=== PATIENT | male | born 1940 | race African-American/Black ===

== ENCOUNTER 2017-03-23 15:03 | Emergency (ER) | payer MEDICARE, MEDICAID ==
[2017-03-23] MEDS ORDERED: PHENAZOPYRIDINE HCL 200 MG TABLET PO ONE (16:33)
--- NOTE | 2017-03-23 16:46 | ER Document Report ---
ED General - General Chief Complaint: Urinary Problem Stated Complaint: PAINFUL URINATION Time Seen by Provider: 03/23/17 16:24 Mode of Arrival: Ambulatory Information source: Patient Notes: 76-year-old male presents with complaints of burning upon urination and hematuria that started this morning. Patient denies any previous similar episodes. Patient has been able to urinate with no difficulty. TRAVEL OUTSIDE OF THE [place] IN LAST 30 DAYS: No - HPI Onset: This morning Onset/Duration: Sudden Quality of pain: Burning Severity: Mild Pain Level: 1 Associated symptoms: Other Exacerbated by: Denies Relieved by: Denies Similar symptoms previously: No Recently seen / treated by doctor: No - Related Data Allergies/Adverse Reactions: No Known Allergies Allergy (Verified 03/23/17 15:03) Past Medical History - Social History Smoking Status: Former Smoker Cigarette use (# per day): No Chew tobacco use (# tins/day): No Smoking Education Provided: No Frequency of alcohol use: None Drug Abuse: None Family History: Reviewed & Not Pertinent Patient has suicidal ideation: No Patient has homicidal ideation: No - Past Medical History Cardiac Medical History: Reports: Hx Hypertension Pulmonary Medical History: Reports: Hx Asthma Renal/ Medical History: Denies: Hx Peritoneal Dialysis Review of Systems - Review of Systems Notes: REVIEW OF SYSTEMS: CONSTITUTIONAL : Denies fever, chills, or sweats. Denies recent illness. EENT: Denies eye, ear, throat, or mouth pain or symptoms. Denies nasal or sinus congestion or discharge. Denies throat, tongue, or mouth swelling or difficulty swallowing. CARDIOVASCULAR: Denies chest pain. Denies palpitations or racing or irregular heart beat. Denies ankle edema. RESPIRATORY: Denies cough, cold, or chest congestion. Denies shortness of breath, difficulty breathing, or wheezing. GASTROINTESTINAL: Denies abdominal pain or distention. Denies nausea, vomiting , or diarrhea. Denies blood in vomitus, stools, or per rectum. Denies black, tarry stools. Denies constipation. GENITOURINARY: admits to burning with urination, hematuria MUSCULOSKELETAL: Denies back or neck pain or stiffness. Denies joint pain or swelling. SKIN: Denies rash, lesions or sores. HEMATOLOGIC : Denies easy bruising or bleeding. LYMPHATIC: Denies swollen, enlarged glands. NEUROLOGICAL: Denies confusion or altered mental status. Denies passing out or loss of consciousness. Denies dizziness or lightheadedness. Denies headache. Denies weakness or paralysis or loss of use of either side. Denies problems with gait or speech. Denies sensory loss, numbness, or tingling. Denies seizures. PSYCHIATRIC: Denies anxiety or stress. Denies depression, suicidal ideation, or homicidal ideation. ALL OTHER SYSTEMS REVIEWED AND NEGATIVE. Dictation was performed using [employer] voice recognition software PHYSICAL EXAMINATION: GENERAL: Well-appearing, well-nourished and in no acute distress. HEAD: Atraumatic, normocephalic. EYES: Pupils equal round and reactive to light, extraocular movements intact, sclera anicteric, conjunctiva are normal. ENT: Nares patent, oropharynx clear without exudates. Moist mucous membranes. NECK: Normal range of motion, supple without lymphadenopathy LUNGS: Breath sounds clear to auscultation bilaterally and equal. No wheezes rales or rhonchi. HEART: Regular rate and rhythm without murmurs ABDOMEN: Soft, nontender, nondistended abdomen. No guarding, no rebound. No masses appreciated. Musculoskeletal: Normal range of motion, no pitting or edema. No cyanosis. NEUROLOGICAL: Cranial nerves grossly intact. Normal speech, normal gait. Normal sensory, motor exams PSYCH: Normal mood, normal affect. SKIN: Warm, Dry, normal turgor, no rashes or lesions noted. Physical Exam - Vital signs Vitals: Temp Pulse Resp BP Pulse Ox 97.9 F 84 18 168/96 H 96 03/23/17 15:14 03/23/17 15:14 03/23/17 15:14 03/23/17 15:14 03/23/17 15:14 Course - Vital Signs Vital signs: Temp Pulse Resp BP Pulse Ox 97.9 F 84 18 168/96 H 96 03/23/17 15:14 03/23/17 15:14 03/23/17 15:14 03/23/17 15:14 03/23/17 15:14
--- NOTE | 2017-03-23 16:59 | ER Document Report ---
ED Medical Screen (RME) - General Chief Complaint: Urinary Problem Stated Complaint: PAINFUL URINATION Time Seen by Provider: 03/23/17 16:24 Mode of Arrival: Ambulatory Information source: Patient Notes: 76-year-old male presents with complaints of burning upon urination as well as difficulty urinating and blood in his urine that started earlier today I have greeted and performed a rapid initial assessment of this patient. A comprehensive ED assessment and evaluation of the patient, analysis of test results and completion of the medical decision making process will be conducted by additional ED providers. PHYSICAL EXAMINATION: GENERAL: Well-appearing, well-nourished and in no acute distress. HEAD: Atraumatic, normocephalic. EYES: Pupils equal round extraocular movements intact, conjunctiva are normal. ENT: Nares patent NECK: Normal range of motion LUNGS: No respiratory distress Musculoskeletal: Normal range of motion NEUROLOGICAL: Normal speech, normal gait. PSYCH: Normal mood, normal affect. SKIN: Warm, Dry, normal turgor, no rashes or lesions noted. TRAVEL OUTSIDE OF THE [place] IN LAST 30 DAYS: No - Related Data Allergies/Adverse Reactions: No Known Allergies Allergy (Verified 03/23/17 15:03) Past Medical History - Social History Frequency of alcohol use: None Drug Abuse: None - Past Medical History Cardiac Medical History: Reports: Hx Hypertension Pulmonary Medical History: Reports: Hx Asthma Renal/ Medical History: Denies: Hx Peritoneal Dialysis Physical Exam - Vital signs Vitals: Temp Pulse Resp BP Pulse Ox 97.9 F 84 18 168/96 H 96 03/23/17 15:14 03/23/17 15:14 03/23/17 15:14 03/23/17 15:14 03/23/17 15:14 Course - Vital Signs Vital signs: Temp Pulse Resp BP Pulse Ox 97.9 F 84 18 168/96 H 96 03/23/17 15:14 03/23/17 15:14 03/23/17 15:14 03/23/17 15:14 03/23/17 15:14
[2017-03-23 17:27] LABS: ABSOLUTE BASOPHILS # (AUTO) 0.1 10^3/uL (0.0-0.2); ABSOLUTE LYMPHOCYTES (AUTO) 1.4 10^3/uL (0.5-4.7); ABSOLUTE NEUT (AUTO) 9.5 10^3/uL (1.7-8.2); BASOPHILS % (AUTO) 0.4 % (0-2); EOSINOPHILS % (AUTO) 0.3 % (0-6); HEMATOCRIT 39.2 % (37.9-51.0); HEMOGLOBIN 12.9 g/dL (13.5-17.0); LYMPHOCYTES % (AUTO) 11.8 % (13-45); MEAN CORPUSCULAR HEMOGLOBIN 29.9 pg (27.0-33.4); MEAN CORPUSCULAR HGB CONC 32.8 g/dL (32.0-36.0); MEAN CORPUSCULAR VOLUME 91 fl (80-97); MONOCYTES % (AUTO) 8.1 % (3-13); PLATELET COUNT 172 10^3/uL (150-450); RED CELL DISTRIBUTION WIDTH 12.9 % (11.5-14.0); SEGMENTED NEUTROPHILS % (AUTO) 79.4 % (42-78); TOTAL CELLS COUNTED % (AUTO) 100 %
[2017-03-23 17:36] LABS: ALANINE AMINOTRANSFERASE 20 U/L (21-72); ALBUMIN 4.5 g/dL (3.5-5.0); ALKALINE PHOSPHATASE 136 U/L (38-126); ANION GAP 14 (5-19); ASPARTATE AMINO TRANSFERASE 18 U/L (17-59); BILIRUBIN,DIRECT 0.2 mg/dL (0.0-0.4); BILIRUBIN,TOTAL 0.4 mg/dL (0.2-1.3); BLOOD UREA NITROGEN 18 mg/dL (7-20); CALCIUM 9.5 mg/dL (8.4-10.2); CARBON DIOXIDE 26 mmol/L (22-30); CHLORIDE 102 mmol/L (98-107); GLUCOSE 172 mg/dL (75-110); POTASSIUM 3.8 mmol/L (3.6-5.0); SODIUM 141.7 mmol/L (137-145); TOTAL PROTEIN 7.7 g/dL (6.3-8.2)
--- NOTE | 2017-03-23 17:39 | RADIOLOGY REPORT (SQ) ---
EXAM DESCRIPTION: CT ABD/PELVIS NO ORAL OR IV COMPLETED DATE/TIME: 03/23/2017 5:13 pm REASON FOR STUDY: hematuria, dysuria COMPARISON: CT abdomen pelvis 01/13/2015 TECHNIQUE: CT scan of the abdomen and pelvis performed without intravenous or oral contrast. Images reviewed with lung, soft tissue, and bone windows. Reconstructed coronal and sagittal MPR images revi ewed. All images stored on PACS. All CT scanners at this facility use dose modulation, iterative reconstruction, and/or weight based d osing when appropriate to reduce radiation dose to as low as reasonably achievable (ALARA). [facility]: Dose Right [facility]: CareDose [facility]: Dose Right [facility]: Teradose 4D [facility]: Smart Razz RADIATION DOSE: CT Rad equipment meets quality standard of care and radiation dose reduction techniq ues were employed. CTDIvol: 12.1 mGy. DLP: 706 mGy-cm.mGy. LIMITATIONS: None. FINDINGS: The bladder is distended. There is hyperdense clot in the dependent portion of the bladde r extending into the male urethra. There is mild bilateral hydronephrosis without ureteral stones id entified. No intrarenal stones. No solid masses. 2.9 cm right midpole renal cortical cyst, 2.5 cm left midpol e renal cortical cyst. LOWER CHEST: Small hiatal hernia. Mild gynecomastia. Both lung bases are free of focal infiltrates. NON-CONTRASTED LIVER, SPLEEN, ADRENALS: Evaluation limited by lack of IV contrast. No identified sign ificant masses. PANCREAS: No masses. No peripancreatic inflammatory changes. GALLBLADDER: No identified stones by CT criteria. No inflammatory changes to suggest cholecystitis. RIGHT KIDNEY AND URETER: As above LEFT KIDNEY AND URETER: As above AORTA AND RETROPERITONEUM: No aneurysm. No retroperitoneal masses or adenopathy. BOWEL AND PERITONEAL CAVITY: No obvious masses or inflammatory changes. No free fluid. APPENDIX: Normal. PELVIS, BLADDER, AND ABDOMINAL WALL:Hyperdense hemorrhage in the dependent portion of the bladder ext ending into the urethra. Mild bilateral hydronephrosis and hydroureter. No free pelvic fluid. No v entral hernia. BONES: No significant findings. OTHER: No other significant finding. IMPRESSION: Hyperdense blood clot in the dependent portion of the urinary bladder extending into the male urethra. Mild urinary outflow obstruction with mild bilateral hydronephrosis and hydroureter COMMENT: Quality ID # [id number]: Final reports with documentation of one or more dose reduction techniques (e.g., Automated exposure control, adjustment of the mA and/or kV according to patient size, use of iterative reconstruction technique) TECHNICAL DOCUMENTATION: JOB ID: [id number] [employer]- All Rights Reserved
[2017-03-23 18:59] LABS: INTERNATIONAL RATION (INR) 0.96; PROTHROMBIN TIME 13.5 SEC (11.4-15.4)
[2017-03-23 19:00] LABS: APPEARANCE,URINE TURBID; BILIRUBIN,URINE NEGATIVE (NEGATIVE); GLUCOSE, URINE NEGATIVE (NEGATIVE); KETONES,URINE NEGATIVE (NEGATIVE); LEUKOCYTE ESTERASE,URINE NEGATIVE (NEGATIVE); NITRITE,URINE NEGATIVE (NEGATIVE); PROTEIN,URINE 100 mg/dL (NEGATIVE); URINE SPECIFIC GRAVITY 1.009; UROBILINOGEN,URINE NEGATIVE mg/dL (<2.0)
[2017-03-23 19:01] LABS: COLOR,URINE RED
[2017-03-23] MEDS ORDERED: CEFTRIAXONE INJ 1000 MG VIAL IM ONE (19:08)
[2017-03-23] MEDS ORDERED: LIDOCAINE 1% INJ-PF (10 MG/ML) 30 ML SDV INFIL ONE (19:08)
--- NOTE | 2017-03-23 19:13 | ER Document Report ---
ED General - General Chief Complaint: Urinary Problem Stated Complaint: PAINFUL URINATION Time Seen by Provider: 03/23/17 16:24 Mode of Arrival: Ambulatory Notes: Patient is a 76-year-old male with a past medical history of BPH, hypertension, who presents with 24 hours of gross hematuria and suprapubic abdominal pain. Patient states that his symptoms started gradually and progressively worsened since that time. Nothing improves or worsens his pain which he does describes a dull, constant, aching pain in the suprapubic region sometimes radiating to the bilateral flanks. He denies any history of similar symptoms in the past. He denies any fever, vomiting, diarrhea or constitutional symptoms. He is scheduled for follow-up with his urologist within the next 4 days but states that today his symptoms became so severe he came to the emergency department. He has no prior history of bladder malignancy or urinary tract infections. TRAVEL OUTSIDE OF THE [place] IN LAST 30 DAYS: No - Related Data Allergies/Adverse Reactions: No Known Allergies Allergy (Verified 03/23/17 15:03) Past Medical History - General Information source: Patient - Social History Smoking Status: Former Smoker Frequency of alcohol use: None Drug Abuse: None Lives with: Family Family History: Reviewed & Not Pertinent Patient has suicidal ideation: No Patient has homicidal ideation: No - Past Medical History Cardiac Medical History: Reports: Hx Hypertension Pulmonary Medical History: Reports: Hx Asthma Renal/ Medical History: Denies: Hx Peritoneal Dialysis Review of Systems - Review of Systems Notes: Constitutional: Negative for fever. HENT: Negative for sore throat. Eyes: Negative for visual changes. Cardiovascular: Negative for chest pain. Respiratory: Negative for shortness of breath. Gastrointestinal: Positive for abdominal pain. Genitourinary: Positive for dysuria and hematuria. Musculoskeletal: Negative for back pain. Skin: Negative for rash. Neurological: Negative for headaches, weakness or numbness. 10 point ROS negative except as marked above and in HPI. Physical Exam - Vital signs Vitals: Temp Pulse Resp BP Pulse Ox 97.9 F 84 18 168/96 H 96 03/23/17 15:14 03/23/17 15:14 03/23/17 15:14 03/23/17 15:14 03/23/17 15:14 Notes: PHYSICAL EXAMINATION: GENERAL: Well-appearing, well-nourished and in no acute distress. HEAD: Atraumatic, normocephalic. EYES: Pupils equal round and reactive to light, extraocular movements intact, sclera anicteric, conjunctiva are normal. ENT: nares patent, oropharynx clear without exudates. Moist mucous membranes. NECK: Normal range of motion, supple without lymphadenopathy LUNGS: Breath sounds clear to auscultation bilaterally and equal. No wheezes rales or rhonchi. HEART: Regular rate and rhythm without murmurs ABDOMEN: Soft, mild suprapubic abdominal tenderness no otherwise localized areas of tenderness, normoactive bowel sounds. No guarding, no rebound. No masses appreciated. EXTREMITIES: Normal range of motion, no pitting or edema. No cyanosis. NEUROLOGICAL: No focal neurological deficits. Moves all extremities spontaneously and on command. PSYCH: Normal mood, normal affect. SKIN: Warm, Dry, normal turgor, no rashes or lesions noted. Course - Re-evaluation Re-evalutation: 03/23/17 19:09 Patient presents with post obstructive uropathy consistent with a post renal azotemia seen on labs as well as a hemorrhagic cystitis as the likely etiology of the obstruction. CT scan does show a large clot in the bladder prior to placement of the Lombardo catheter that was causing mild bilateral hydronephrosis. A Lombardo catheter was placed and patient is passing gross hematuria but no evidence of a faculty of the urine passing through the Lombardo. Patient is otherwise well in appearance, no acute distress, no focal abdominal tenderness. He states that his suprapubic and bilateral flank pain has resolved after placement of Lombardo catheter. Laboratories not demonstrated clinically significant anemia. Vitals otherwise within normal limits. Urinalysis does show evidence of a hemorrhagic cystitis greater than 182 white blood cells in the urine. I am ceftriaxone 1 g will be administered prior to discharge and a culture has been sent. The patient has also been informed that there is a possibility this could be a presentation of bladder cancer. He already has a scheduled follow-up with his urologist on Sunday of next week. He will be discharged with a Lombardo catheter in place with a leg bag. At this time will discharge with return precautions and follow-up recommendations. Verbal discharge instructions given a the bedside and opportunity for questions given. Medication warnings reviewed. Patient is in agreement with this plan and has verbalized understanding of return precautions and the need for primary care follow-up in the next 24-72 hours. - Vital Signs Vital signs: Temp Pulse Resp BP Pulse Ox 97.9 F 90 18 163/75 H 95 03/23/17 19:30 03/23/17 19:30 03/23/17 19:30 03/23/17 19:30 03/23/17 19:30 - Laboratory Result Diagrams: 03/23/17 17:00 03/23/17 17:00 Laboratory results interpreted by me: 03/23/17 03/23/17 03/23/17 17:00 17:00 18:13 WBC 12.0 H RBC 4.30 L Hgb 12.9 L Seg Neutrophils % 79.4 H Lymphocytes % 11.8 L Absolute Neutrophils 9.5 H Creatinine 1.52 H Est GFR ( Amer) 54 L Est GFR (Non-Af Amer) 45 L Glucose 172 H ALT 20 L Alkaline Phosphatase 136 H Urine Protein 100 H Urine Blood MODERATE H - Diagnostic Test Radiology reviewed: Image reviewed, Reports reviewed Radiology results interpreted by me: 03/23/17 19:10 CT abdomen pelvis: Mild bilateral hydronephrosis Discharge - Discharge Clinical Impression: Obstructive uropathy, Hemorrhagic cystitis, Gross hematuria Acute renal failure Qualifiers: Acute renal failure type: unspecified Qualified Code(s): N17.9 - Acute kidney failure, unspecified Condition: Stable Disposition: HOME, SELF-CARE Additional Instructions: Your urine shows an infection but also a large quantity of blood. You are being started on antibiotics and received a dose here in the emergency department before going home. Your CT scan shows that your kidneys were somewhat distended due to the amount of urine your retaining in your bladder. Please take all antibiotics until completed. Follow-up with your urologist as scheduled. You are going home with a Lombardo catheter in place to ensure that your bladder remains decompressed. Return if you have worsening pain, fever, vomiting, stop passing urine out of the Lombardo catheter, or have any other symptoms that are worrisome to you. Prescriptions: Cephalexin Monohydrate [Keflex 500 mg Capsule] 500 mg PO Q6H 7 Days capsule
[2017-03-23 19:34] VITALS: BP 163/75
== END 2017-03-23 19:52 | disposition home or self-care (01) ==
LOC: ER 15:03
DX: N13.9 Obstructive and reflux uropathy, unspecified (principal); N30.91 Cystitis, unspecified with hematuria; I10 Essential (primary) hypertension; Z87.891 Personal history of nicotine dependence
CPT/HCPCS: 99284; 96372; 36415; 87086; 85025; 85610; 87088; 80053; 81001; 87186; 74176; J3490; A9270; J0696

== ENCOUNTER → 2017-04-24 | Outpatient (CLI) | payer MEDICARE, MEDICAID ==
--- NOTE | 2017-04-24 16:36 | RADIOLOGY REPORT (SQ) ---
EXAM DESCRIPTION: CT ABD/PELVIS WITH IV ONLY COMPLETED DATE/TIME: 04/24/2017 2:26 pm REASON FOR STUDY: GROSS HEMATURIA R31.0 GROSS HEMATURIA COMPARISON: 03/23/2017 and 01/13/2015. TECHNIQUE: CT scan of the abdomen and pelvis performed using helical scanning technique with dynamic intravenous contrast injection. No oral contrast. Images reviewed with lung, soft tissue, and bone windows. Reconstructed coronal and sagittal MPR images reviewed. Delayed images for evaluation of the urinary system also acquired. All images stored on PACS. All CT scanners at this facility use dose modulation, iterative reconstruction, and/or weight based d osing when appropriate to reduce radiation dose to as low as reasonably achievable (ALARA). [facility]: Dose Right [facility]: CareDose [facility]: Dose Right [facility]: Teradose 4D [facility]: [employer] CONTRAST TYPE AND DOSE: contrast/concentration: Isovue 370.00 mg/ml; Total Contrast Delivered: 98.0 ml; Total Saline Delivered: 72.0 ml RENAL FUNCTION: Creatinine 1.0. RADIATION DOSE: CT Rad equipment meets quality standard of care and radiation dose reduction techniq ues were employed. CTDIvol: 7.9 - 9.1 mGy. DLP: 935 mGy-cm.. LIMITATIONS: None. FINDINGS: LOWER CHEST: No significant findings. No nodules or infiltrates. LIVER: Normal size. No masses. No dilated ducts. SPLEEN: Normal size. No focal lesions. PANCREAS: No masses. No significant calcifications. No adjacent inflammation or peripancreatic fluid collections. Pancreatic duct not dilated. GALLBLADDER: No identified stones by CT criteria. No inflammatory changes to suggest cholecystitis. ADRENAL GLANDS: No significant masses or asymmetry. RIGHT KIDNEY AND URETER: Stable cortical cysts. No solid masses. No significant calcifications. No hydronephrosis or hydroureter. LEFT KIDNEY AND URETER: Stable cortical cysts. No solid masses. No significant calcifications. N o hydronephrosis or hydroureter. AORTA AND VESSELS: No aneurysm. No dissection. Renal arteries, SMA, celiac without stenosis. RETROPERITONEUM: No retroperitoneal adenopathy, hemorrhage or masses. BOWEL AND PERITONEAL CAVITY: No masses or inflammatory changes. Duodenal diverticulum. No free flui d or peritoneal masses. APPENDIX: Normal. PELVIS: No mass. No free fluid. Normal bladder. ABDOMINAL WALL: No masses. No hernias. BONES: No significant or acute findings. OTHER: Scattered densities in the subcutaneous fatty tissues of the anterior abdomen, unchanged, poss ibly due to areas of scarring. No other significant finding. IMPRESSION: STABLE CORTICAL CYSTS IN BOTH KIDNEYS. INCIDENTAL DUODENAL DIVERTICULUM. NO OTHER SIGN IFICANT OR ACUTE FINDING IN THE ABDOMEN OR PELVIS ON CT SCAN WITH IV CONTRAST. TECHNICAL DOCUMENTATION: JOB ID: [id number] Quality ID # [id number]: Final reports with documentation of one or more dose reduction techniques (e.g., Au tomated exposure control, adjustment of the mA and/or kV according to patient size, use of iterative reconstruction technique) 2010 [employer]- All Rights Reserved Reading location - IP/workstation name: [email or web address]-[email or web address]
== END ==
LOC: RAD 13:28
PROVIDERS: ATTEND Urology
DX: R31.0 Gross hematuria (principal)
CPT/HCPCS: 74177; 82565

== ENCOUNTER 2018-01-29 08:54 | Emergency (ER) | payer MEDICARE, MEDICAID ==
[2018-01-29] MEDS ORDERED: ONDANSETRON 4 MG TAB.RAPDIS PO ONE (09:22)
--- NOTE | 2018-01-29 09:23 | ER Document Report ---
ED Medical Screen (RME) - General Chief Complaint: Nausea Stated Complaint: ABDOMINAL PAIN, BACK PAIN Time Seen by Provider: 01/29/18 09:20 Mode of Arrival: Wheelchair Information source: Patient, [facility] Records Notes: 77-year-old male with hypertension, hyperlipidemia, asthma presents with complaint of left low back pain that started 3 days prior to arrival. Patient has had associated nausea and vomiting secondary to pain. He denies any injury. I have greeted and performed a rapid initial assessment of this patient. A comprehensive ED assessment and evaluation of the patient, analysis of test results and completion of medical decision making process we will be contacted by additional ED providers. PHYSICAL EXAMINATION: Vital signs reviewed-tachycardic GENERAL: Well-appearing, well-nourished and in no acute distress. LUNGS: No respiratory distress Musculoskeletal: Normal range of motion NEUROLOGICAL: Normal speech, normal gait. PSYCH: Normal mood, normal affect. SKIN: Warm, Dry, normal turgor, no rashes or lesions noted. TRAVEL OUTSIDE OF THE [place] IN LAST 30 DAYS: No - HPI Onset: Other Onset/Duration: Gradual, Persistent Quality of pain: Throbbing Associated Symptoms: Nausea, Vomiting Exacerbated by: Movement Relieved by: Denies Similar symptoms previously: No Recently seen / treated by doctor: No - Related Data Smoking: Non-smoker Frequency of alcohol use: None Drug Abuse: None Allergies/Adverse Reactions: No Known Allergies Allergy (Verified 01/29/18 09:17) Past Medical History - Social History Chew tobacco use (# tins/day): No Frequency of alcohol use: None Drug Abuse: None - Past Medical History Cardiac Medical History: Reports: Hx Hypertension Pulmonary Medical History: Reports: Hx Asthma Renal/ Medical History: Denies: Hx Peritoneal Dialysis Past Surgical History: Reports: Hx Orthopedic Surgery Physical Exam - Vital signs Vitals: Temp Pulse Resp BP Pulse Ox 97.5 F 106 H 16 105/54 L 97 01/29/18 09:01 01/29/18 09:01 01/29/18 09:01 01/29/18 09:01 01/29/18 09:01 Course - Vital Signs Vital signs: Temp Pulse Resp BP Pulse Ox 97.5 F 106 H 16 105/54 L 97 01/29/18 09:01 01/29/18 09:01 01/29/18 09:01 01/29/18 09:01 01/29/18 09:01 Doctor's Discharge - Discharge Referrals: MIGUELANGEL JUAREZ MD [Primary Care Provider] - Follow up as needed
--- NOTE | 2018-01-29 10:12 | ER Document Report ---
ED General - General Chief Complaint: Nausea Stated Complaint: ABDOMINAL PAIN, BACK PAIN Time Seen by Provider: 01/29/18 09:20 Mode of Arrival: Wheelchair Notes: Patient is a 77-year-old male with hypertension that presents to the emergency department for chief complaint of abdominal pain. Patient states the pain started over this past weekend, he had associated nausea and vomiting, and has been persistent and seemingly worsening over time. The pain is located left side of the abdomen, radiates toward the lower back, and they currently rate the pain as a 4 out of 10, and described as aching, and constant. They have had associated nausea, vomiting, associated with this pain, denies having any chest pain, shortness of breath, fevers, chills, night sweats. Denies having pain like this in the past, he thought maybe the pain came from eating and sandwich, but he denies having any associated diarrhea, currently rates the pain as a 5 out of 10, describes as aching sensation. Past Medical History: Hypertension Past Surgical History: Rotator cuff, thumb surgery, knee surgery Social History: Former smoker, denies alcohol or illicit drug use. Family History: Reviewed and noncontributory for presenting illness Allergies: Reviewed, see documented allergy list. REVIEW OF SYSTEMS: Other than noted above, the 12 point review of systems was reviewed with the patient and were negative, all pertinent findings are included in the HPI. PHYSICAL EXAMINATION: Vital signs reviewed, nursing noted reviewed. GENERAL: Somewhat ill-appearing elderly male, but in no acute distress HEAD: Atraumatic, normocephalic. EYES: Eyes appear normal, extraocular movements intact, sclera anicteric, conjunctiva are normal. ENT: nares patent, oropharynx clear without exudates. Moist mucous membranes. NECK: Normal range of motion, supple without lymphadenopathy LUNGS: Breath sounds clear to auscultation bilaterally and equal. No wheezes rales or rhonchi. HEART: Heart rate tachycardic, regular rhythm ABDOMEN: Soft, distended, no pulsatile mass, normal bowel sounds, tenderness with palpation on the left side of the abdomen, No rebound, guarding, or rigidity. No masses appreciated. Liver is palpated and appears enlarged. EXTREMITIES: Nontender, good range of motion, no pitting or edema. NEUROLOGICAL: No focal neurological deficits. Moves all extremities spontaneously Motor and sensory grossly intact on exam. PSYCH: Normal mood, normal affect. SKIN: Warm, Dry, normal turgor, no rashes or lesions noted on exposed skin TRAVEL OUTSIDE OF THE [place] IN LAST 30 DAYS: No - Related Data Allergies/Adverse Reactions: No Known Allergies Allergy (Verified 01/29/18 09:17) Past Medical History - General Information source: Patient, [facility] Records - Social History Smoking Status: Former Smoker Chew tobacco use (# tins/day): No Frequency of alcohol use: None Drug Abuse: None Family History: Reviewed & Not Pertinent Patient has suicidal ideation: No Patient has homicidal ideation: No - Past Medical History Cardiac Medical History: Reports: Hx Hypertension Pulmonary Medical History: Reports: Hx Asthma Renal/ Medical History: Denies: Hx Peritoneal Dialysis Past Surgical History: Reports: Hx Orthopedic Surgery Physical Exam - Vital signs Vitals: Temp Pulse Resp BP Pulse Ox 97.5 F 106 H 16 105/54 L 97 01/29/18 09:01 01/29/18 09:01 01/29/18 09:01 01/29/18 09:01 01/29/18 09:01 Course - Re-evaluation Re-evalutation: Patient seen and examined vital signs reviewed. Laboratory data and imaging were ordered as appropriate for the patient's presenting symptoms and complaint, with consideration of any critical or life threatening conditions that may be associated with their obtained history and exam as noted above. Patient was treated with IV fluids, Zofran Results were reviewed when available and demonstrated evidence of acute hepatic failure, hyperbilirubinemia, transaminitis, and on CT imaging, redemonstration of hyperattenuating lesions, concerning for possible carcinoma, though not seen on prior CT imaging. Lipase is normal. Patient also noted to have an acute kidney injury from prior labs, patient was given IV fluids. He was also noted to be anemic compared to prior labs from March of this year, from , to , overall his blood counts are lower, lower platelet count and prior as well, suspect secondary to liver failure. The patient was re-evaluated and was stable, pain was improved, no further nausea or vomiting, discussed results with the patient. Evaluation was most consistent with acute liver failure, with acute kidney injury Initially I did call the hospitalist to admit the patient to this institution, however they recommended calling the vocational rehabilitation teacher I was instructional technology director prior to excepting admission to see if they would be able to help manage the patient, was placed to Dr. Devlin who stated the patient may need ERCP, which she has not trained in, and recommended transfer to an institution that had ERCP available. Results were discussed with the patient at this point after careful consideration I feel that that patient should be transferred to [facility] due to need for ERCP, and further management for his acute hepatic failure and acute kidney injury, and further workup needed. This was discussed with the patient that it is in the best interest for their care to be transferred, the risks and benefits of transfer were discussed, including but not limited to clinical deterioration during transport, respiratory distress , and potential for traumatic injuries. Patient agreed with this plan of care. Patient accepted by Dr. Pritchett at [facility]. *Note is created using voice recognition software and may contain spelling, syntax or grammatical errors. Laboratory 01/29/18 01/29/18 01/29/18 11:15 11:15 11:15 WBC 10.8 H RBC 2.73 L Hgb 9.1 L Hct 27.1 L MCV 99 H MCH 33.4 MCHC 33.7 RDW 14.0 Plt Count 160 Total Counted 100 Seg Neutrophils % Not Reportable Seg Neuts % (Manual) 74 Band Neutrophils % 1 L Lymphocytes % Not Reportable Lymphocytes % (Manual) 12 L Monocytes % Not Reportable Monocytes % (Manual) 13 Eosinophils % Not Reportable Eosinophils % (Manual) 0 Basophils % Not Reportable Basophils % (Manual) 0 Absolute Neutrophils Not Reportable Abs Neuts (Manual) 8.1 Absolute Lymphocytes Not Reportable Abs Lymphs (Manual) 1.3 Absolute Monocytes Not Reportable Abs Monocytes (Manual) 1.4 Absolute Eosinophils Not Reportable Absolute Eos (Manual) 0.0 Absolute Basophils Not Reportable Abs Basophils (Manual) 0.0 Nucleated RBCs 1 Platelet Comment ADEQUATE Polychromasia 1+ Poikilocytosis SLIGHT Macrocytosis SLIGHT Tear Drop Cells SLIGHT Ovalocytes SLIGHT Sodium 143.1 Potassium 4.5 Chloride 104 Carbon Dioxide 24 Anion Gap 15 BUN 55 H Creatinine 2.35 H Est GFR ( Amer) 33 L Est GFR (Non-Af Amer) 27 L Glucose 121 H Calcium 9.4 Total Bilirubin 5.5 H Direct Bilirubin 4.3 H Neonat Total Bilirubin Not Reportable Neonat Direct Bilirubin Not Reportable Neonat Indirect Bili Not Reportable AST 329 H ALT 143 H Alkaline Phosphatase 198 H Creatine Kinase 136 CK-MB (CK-2) 1.79 Troponin I < 0.012 Total Protein 7.8 Albumin 3.8 Lipase 19.4 L Abdomen/Pelvis CT 01/29/18 12:01 IMPRESSION: 1. Since the previous examination dated 03/23/2017, heterogenous appearance to the liver with multiple hypoattenuated areas suggested. Hepatomegaly and small right perihepatic free fluid, new findings. Correlation suggested, lab values, and CT Liver with and without IV contrast or MRI Liver with and without contrast. 2. Interval resolution of the bilateral hydro ureteral nephrosis. 3. Bilateral fat containing inguinal hernias and small fat containing umbilical hernia. 4. Small gallstones. 5. Additional findings as above. - Vital Signs Vital signs: Temp Pulse Resp BP Pulse Ox 97.5 F 106 H 16 105/54 L 97 01/29/18 09:01 01/29/18 09:01 01/29/18 09:01 01/29/18 09:01 01/29/18 10:34 - Laboratory Result Diagrams: 01/29/18 11:15 01/29/18 11:15 Laboratory results interpreted by me: 01/29/18 01/29/18 01/29/18 11:15 11:15 14:05 WBC 10.8 H RBC 2.73 L Hgb 9.1 L Hct 27.1 L MCV 99 H Band Neutrophils % 1 L Lymphocytes % (Manual) 12 L PT 17.4 H APTT 48.1 H BUN 55 H Creatinine 2.35 H Est GFR ( Amer) 33 L Est GFR (Non-Af Amer) 27 L Glucose 121 H Total Bilirubin 5.5 H Direct Bilirubin 4.3 H AST 329 H ALT 143 H Alkaline Phosphatase 198 H Lipase 19.4 L Procedures - Ultrasound/Bedside Ultrasound/Bedside Ultrasound: Other - Abnormal liver findings, multiple large hyperechoic liver masses noted Notes: Exam: Right upper quadrant bedside ultrasound, dilated aortic ultrasound Indication: Abdominal pain Findings: Patient right upper quadrant was examined in the supine position, demonstrated multiple large hyperechoic lesions in the liver, gallbladder appeared normal, normal thickness, no distention, no pericholecystic fluid, no significant ascites appreciated. The abdominal aorta was visualized, and appeared normal in caliber, until the bifurcation of the iliac arteries, no evidence of aneurysm. Critical Care Note - Critical Care Note Total time excluding time spent on procedures (mins): 35 Comments: Critical care time 35 minutes exclusive from separate billable procedures for a patient requiring complex medical decision making, and high potential for clinical deterioration. In a patient presenting with acute abdominal pain, with acute liver failure and acute kidney injury, requiring close monitoring, and transfer to a tertiary facility.. Time spent obtaining history from patient or surrogate, discussions with consultants, development of treatment plan with patient or surrogate, evaluation of patient's response to treatment, examination of patient, ordering and performing treatments and interventions, ordering and review of laboratory studies, re-evaluation of patient's condition , ordering and review of radiographic studies and review of old charts Discharge - Discharge Clinical Impression: Hyperbilirubinemia, SHAWN (acute kidney injury), Transaminitis Acute liver failure Qualifiers: Hepatic coma status: without hepatic coma Qualified Code(s): K72.00 - Acute and subacute hepatic failure without coma Abdominal pain Qualifiers: Abdominal location: unspecified location Qualified Code(s): R10.9 - Unspecified abdominal pain Anemia Qualifiers: Anemia type: unspecified type Qualified Code(s): D64.9 - Anemia, unspecified Condition: Stable Disposition: [facility] Referrals: MIGUELANGEL JUAREZ MD [NO LOCAL MD] - Follow up as needed
[2018-01-29] MEDS ORDERED: NORMAL SALINE 1000 ML 1,000 ML IV ONE (10:19)
[2018-01-29 11:38] LABS: HEMATOCRIT 27.1 % (37.9-51.0); HEMOGLOBIN 9.1 g/dL (13.5-17.0); MEAN CORPUSCULAR HEMOGLOBIN 33.4 pg (27.0-33.4); MEAN CORPUSCULAR HGB CONC 33.7 g/dL (32.0-36.0); MEAN CORPUSCULAR VOLUME 99 fl (80-97); PLATELET COUNT 160 10^3/uL (150-450); RED BLOOD COUNT 2.73 10^6/uL (4.35-5.55); WHITE BLOOD COUNT 10.8 10^3/uL (4.0-10.5)
[2018-01-29 11:55] LABS: ALANINE AMINOTRANSFERASE 143 U/L (21-72); ALBUMIN 3.8 g/dL (3.5-5.0); ALKALINE PHOSPHATASE 198 U/L (38-126); ANION GAP 15 (5-19); ASPARTATE AMINO TRANSFERASE 329 U/L (17-59); BILIRUBIN,DIRECT 4.3 mg/dL (0.0-0.4); BILIRUBIN,TOTAL 5.5 mg/dL (0.2-1.3); BLOOD UREA NITROGEN 55 mg/dL (7-20); CALCIUM 9.4 mg/dL (8.4-10.2); CARBON DIOXIDE 24 mmol/L (22-30); CHLORIDE 104 mmol/L (98-107); CREATINE KINASE 136 U/L (55-170); GLUCOSE 121 mg/dL (75-110); LIPASE 19.4 U/L (23-300); POTASSIUM 4.5 mmol/L (3.6-5.0); SODIUM 143.1 mmol/L (137-145); TOTAL PROTEIN 7.8 g/dL (6.3-8.2)
[2018-01-29 12:00] LABS: ABSOLUTE LYMPHOCYTES# (MANUAL) 1.3 10^3/uL (0.5-4.7); ABSOLUTE MONOCYTES # (MANUAL) 1.4 10^3/uL (0.1-1.4); ABSOLUTE NEUTROPHILS# (MANUAL) 8.1 10^3/uL (1.7-8.2); BAND NEUTROPHILS % (MANUAL) 1 % (3-5); BASOPHILS % (MANUAL) 0 % (0-2); EOSINOPHILS % (MANUAL) 0 % (0-6); LYMPHOCYTES % (MANUAL) 12 % (13-45); MONOCYTES % (MANUAL) 13 % (3-13); NUCLEATED RED BLOOD CELLS 1 /100 WBC (0); SEGMENTED NEUTROPHILS % (MAN) 74 % (42-78); TOTAL CELLS COUNTED 100
[2018-01-29 12:02] LABS: OVALOCYTES SLIGHT; PLATELET COMMENT ADEQUATE; POIKILOCYTOSIS SLIGHT; POLYCHROMASIA 1+; TEAR DROP CELLS SLIGHT
[2018-01-29 12:06] LABS: CREATINE KINASE MB 1.79 ng/mL (<4.55)
[2018-01-29 12:08] LABS: TROPONIN I < 0.012 ng/mL
--- NOTE | 2018-01-29 12:59 | EKG REPORT ---
SEVERITY:- ABNORMAL ECG - SINUS RHYTHM INCOMPLETE RIGHT BUNDLE BRANCH BLOCK NONSPECIFIC ST-T CHANGES- INFERIOR LEADS : Confirmed by: Osiel Cruz MD 29-Jan-2018 12:58:52
--- NOTE | 2018-01-29 13:51 | RADIOLOGY REPORT (SQ) ---
EXAM DESCRIPTION: CT ABD/PELVIS NO ORAL OR IV COMPLETED DATE/TIME: 01/29/2018 1:25 pm REASON FOR STUDY: abdominal pain, liver masses on bedside us COMPARISON: 03/23/2017 TECHNIQUE: CT scan of the abdomen and pelvis performed without intravenous or oral contrast. Images reviewed with lung, soft tissue, and bone windows. Reconstructed coronal and sagittal MPR images revi ewed. All images stored on PACS. All CT scanners at this facility use dose modulation, iterative reconstruction, and/or weight based d osing when appropriate to reduce radiation dose to as low as reasonably achievable (ALARA). [facility]: Dose Right [facility]: CareDose [facility]: Dose Right [facility]: Teradose 4D [facility]: [employer] RADIATION DOSE: CT Rad equipment meets quality standard of care and radiation dose reduction techniq ues were employed. CTDIvol: 8.8 mGy. DLP: 507 mGy-cm.mGy. LIMITATIONS: None. FINDINGS: LOWER CHEST: No significant interval changes. NON-CONTRASTED LIVER, SPLEEN, ADRENALS: Hepatomegaly. Multiple hypoattenuated areas throughout the l iver. Small amount of right perihepatic fluid. These represent new findings since the prior examina tion. Evaluation limited by lack of IV contrast. PANCREAS: No masses. No peripancreatic inflammatory changes. GALLBLADDER: Small gallstones, stable finding. No identified stones by CT criteria. No inflammatory changes to suggest cholecystitis. RIGHT KIDNEY AND URETER: Stable right renal cyst. Assessment limited by lack of IV contrast. No s ignificant calcifications. No hydronephrosis or hydroureter. LEFT KIDNEY AND URETER: Stable left renal cyst. Assessment limited by lack of IV contrast. No sig nificant calcifications. No hydronephrosis or hydroureter. AORTA AND RETROPERITONEUM: Left retro-aortic renal vein, normal anatomic variant. Atherosclerotic c hanges involving the abdominal aorta and branch vessels. No aneurysm. No retroperitoneal masses or a denopathy. BOWEL AND PERITONEAL CAVITY: Duodenum diverticulum, stable finding. No obvious masses or inflammato ry changes. No free fluid. APPENDIX: Normal. PELVIS, BLADDER, AND ABDOMINAL WALL: The prostate gland is stable in appearance. Prostatic concreti ons. Interval resolution of the previously demonstrated hematoma within the urinary bladder. No shelby e fluid. Fat containing bilateral inguinal hernias, larger on the left. Small fat containing umbilical hernia . BONES: The osseous structures are stable in appearance. OTHER: Bilateral gynecomastia, stable finding. Stable soft tissue densities in the anterior subcuta neous tissues of the abdomen maybe related to prior injections. IMPRESSION: 1. Since the previous examination dated 03/23/2017, heterogenous appearance to the liver with multiple hypoattenuated areas suggested. Hepatomegaly and small right perihepatic free fluid, n ew findings. Correlation suggested, lab values, and CT Liver with and without IV contrast or MRI Teodora er with and without contrast. 2. Interval resolution of the bilateral hydro ureteral nephrosis. 3. Bilateral fat containing inguinal hernias and small fat containing umbilical hernia. 4. Small gallstones. 5. Additional findings as above. COMMENT: Quality ID # [id number]: Final reports with documentation of one or more dose reduction techniques (e.g., Automated exposure control, adjustment of the mA and/or kV according to patient size, use of iterative reconstruction technique) TECHNICAL DOCUMENTATION: JOB ID: [id number] [employer]- All Rights Reserved Reading location - IP/workstation name: [email or web address]
[2018-01-29 14:57] LABS: INTERNATIONAL RATION (INR) 1.35; PROTHROMBIN TIME 17.4 SEC (11.4-15.4)
[2018-01-29 14:58] LABS: PARTIAL THROMBOPLASTIN TIME 48.1 SEC (23.5-35.8)
[2018-01-29] MEDS ORDERED: HYDROMORPHONE HCL INJ/PF 2 MG/ML AMPULE IV ONE (16:03)
[2018-01-29 21:18] VITALS: BP 137/72
== END 2018-01-29 22:00 | disposition short-term general hospital (02) ==
LOC: ER 08:54
DX: E80.6 Other disorders of bilirubin metabolism (principal); N17.9 Acute kidney failure, unspecified; R74.0 Nonspecific elevation of levels of transaminase and lactic acid dehydrogenase [LDH]; K72.00 Acute and subacute hepatic failure without coma; D64.9 Anemia, unspecified; R10.9 Unspecified abdominal pain; R11.0 Nausea; M54.9 Dorsalgia, unspecified; I10 Essential (primary) hypertension
CPT/HCPCS: 93005; 99291; 96361; 96374; 36415; 82553; 82550; 83690; 80307; 85025; 85610; 85730; 80053; 84484; 74176; 93010; A9270; J1170; J7030; S0119